=== PATIENT | female | born 1965 | race Caucasian/White ===

== ENCOUNTER → 2017-04-16 | Outpatient (CLI) | payer BC ==
[~2017-04-16] MED LIST: ASHWAGANDHA PO; BIOTIN10000 MC1 PO; FLONASE16 G1 BOTH NARES; GLUCOSAMINE-CH480 ML PO; HYZAAR 50-121 TABLET PO; IODORAL PO; KELP1 EACH PO; KRILL OIL500 MG PO; MULTIVITAMIN1 EAC2 PO; VITAMIN C1000 MG PO; WELLBUTRIN XL150 MG PO; ZYRTEC10 M3 PO; [UNRECOGNIZED DRUG - OTHER] PO; [UNRECOGNIZED DRUG - OTHER] PO
== END | disposition home or self-care (01) ==
LOC: CDC 12:52
DX: Z01.810 Encounter for preprocedural cardiovascular examination (principal); R94.31 Abnormal electrocardiogram [ECG] [EKG]
CPT/HCPCS: 93000